=== PATIENT | male | born 1965 | race Caucasian/White ===

== ENCOUNTER 2018-06-22 12:45 | Outpatient (CLI) | payer BC ==
--- NOTE | 2018-06-22 14:42 | MRI ---
LUMBAR SPINE MRI WITHOUT IV CONTRAST: History: 52-year-old male with history of M54.10 acute lumbar radiculopathy, low back pain. Comparison: 12-31-15 FINDINGS: Generalized disc desiccation changes with ligament and facet hypertrophic changes. Conus medullaris r egion is unremarkable, terminating at L1. T12-L1: Unremarkable. L1-2: There is some disc bulging and ligament and facet hypertrophic changes with mild central canal and lateral recess stenosis without significant foraminal stenosis. L2-3: Generalized disc bulging with ligament and facet hypertrophic changes with moderate central can al and lateral recess stenosis and foraminal stenosis with multiple annular fissures. L3-4: Mild central canal and moderate lateral recess stenosis and left annular fissure. L4-5: Severe desiccation change with mild central canal and mild to moderate lateral recess stenosis with a central annular fissure and mild to moderate bilateral foraminal stenosis, worse on the left s denis. L5-S1: Mild bilateral foraminal stenosis with small right posterior annular fissure. IMPRESSION: Variable severity multilevel canal and lateral recess, and foraminal stenosis with multilevel annular fissures. POS: [facility]
== END 2018-06-22 12:46 | disposition home or self-care (01) ==
LOC: BICMRI 12:45
PROVIDERS: ATTEND Anesthesiology Pain Medicine
DX: M54.16 Radiculopathy, lumbar region (principal); M48.061 Spinal stenosis, lumbar region without neurogenic claudication
CPT/HCPCS: 72148

== ENCOUNTER 2018-11-04 14:15 | Outpatient (CLI) | payer BC ==
--- NOTE | 2018-11-04 15:43 | MRI ---
MRI CERVICAL SPINE WITHOUT CONTRAST: 11/04/18 Multiplanar and multisequential imaging cervical spine obtained. INDICATIONS: Cervical radiculopathy at C5. FINDINGS: There are prominent degenerative changes at C5-6 and C6-7. Loss of disc space at both of these levels . Prominent anterior osteophytes. Anterior wedging at C5 and C7 vertebrae. Similar degenerative changes were present at these levels on a CT cervical spine from 08/18/11. Degen erative changes have progressed. At C2-3, no significant disc bulge or spondylosis. At C3-4, disc bulge and spondylosis is present effacing the anterior subarachnoid space. Disc osteoph yte complex is more prominent paracentrally to the right with abutment of the anterior cord on the ri ght and slight displacement of the exiting right C4 nerve root. Mild right foraminal encroachment. At C4-5, slight anterolisthesis. Mild spondylosis. No cord impingement. No significant foraminal sten osis. At C5-6, degenerative disc changes. Loss of disc space. Mild posterior spondylosis effaces the anteri or subarachnoid space. No significant cord impingement. No significant foraminal stenosis is apparent . At C6-7, mild disc bulge and spondylosis efface the anterior subarachnoid space. No significant cord impingement. Mild right foraminal encroachment due to facet and uncinated hypertrophy. At C7-T1, mild disc bulge. Anterior subarachnoid space is preserved. Uncinate hypertrophy on the left produces mild left foraminal encroachment. Cervical cord signal is normal. IMPRESSION: Degenerative changes are prominent at C5-6 and C6-7 as described above. A disc osteophyte complex pr ojects to the right at C3-4 as noted above. POS: [facility]
== END 2018-11-04 14:16 | disposition home or self-care (01) ==
LOC: TBSIIMAG 14:15
PROVIDERS: ATTEND Nurse Practitioner Family
DX: M47.22 Other spondylosis with radiculopathy, cervical region (principal); M25.78 Osteophyte, vertebrae
CPT/HCPCS: 72141

== ENCOUNTER 2019-05-04 07:36 | Outpatient (CLI) | payer BC ==
--- NOTE | 2019-05-04 10:41 | MRI ---
MRI RIGHT KNEE PERFORMED WITHOUT CONTRAST ENHANCEMENT: Date: 05/04/19 HISTORY: Right knee pain, lateral pain. History of previous meniscectomy. COMPARISON: 09/03/14 study. FINDINGS: The anterior, as well as posterior cruciate ligaments are intact. On the previous examination, there was a posterior horn medial meniscus tear present. There are post meniscectomy changes now seen. There is blunting to the free edge of the posterior horn with these ch anges extending to body of the medial meniscus. There is internal signal change within posterior horn , somewhat more prominent than it was on previous exam, compatible with some internal mucoid degenera tion. Signal change does contact the undersurface of the posterior horn close to the posterior horn/b srikanth junction. This appears to represent a small undersurface tear, which is probably not related to t he meniscectomy change. On the lateral side, there has been development of a new tear, which involves the body of the lateral meniscus as more of a flap-type orientation of a tear. Posterior horn appears intact. Medial and lateral collateral ligaments, and iliotibial band regions appear unremarkable. The patellar articular cartilage is intact. The medial and lateral patellar retinaculum, and quadrice ps and patellar tendons are normal. IMPRESSION: 1. New tear involving the body of the lateral meniscus, more of a flap-type tear. 2. Post meniscectomy changes of the medial meniscus. Some more prominent increased signal change wit hin the posterior horn is probably related to some internal mucoid degeneration. There is an area in the posterior horn where there is signal change contacting the inferior articular surface in addition to the truncated appearance to the meniscus. This could indicate there is a small undersurface tear present in addition to the meniscectomy change. POS: [facility]
== END 2019-05-04 07:37 | disposition home or self-care (01) ==
LOC: BICMRI 07:36
PROVIDERS: ATTEND Orthopaedic Surgery
DX: S83.281A Other tear of lateral meniscus, current injury, right knee, initial encounter (principal); Z98.890 Other specified postprocedural states

== ENCOUNTER 2019-05-30 07:03 | Outpatient (CLI) | payer BC ==
[2019-05-30 15:03] LABS: #Basophils 0.1 thou/uL (0.0-0.2); #Eosinphils 0.3 thou/uL (0.0-0.7); #Lymphocytes 2.2 thou/uL (1.20-3.40); #Monocytes 0.4 thou/uL (0.11-0.59); #Neutrophils 3.8 thou/uL (1.40-6.50); %Basophils 0.9 % (0.0-1.0); %Eosinophils 4.5 % (0.0-10.0); %Lymphocytes 32.4 % (21.0-51.0); %Neutrophils 56.3 % (42.0-75.0); Hemoglobin 14.6 g/dL (14.0-18.0); Mean Corpuscular HGB CONC 33.5 g/dL (32.0-36.0); Mean Corpuscular Hemoglobin 31.2 pg (27.0-31.0); Mean Corpuscular Volume 93.1 fL (78.0-98.0); Mean Platelet Volume 6.5 fL (7.4-10.4); Platelet Count 233 thou/uL (130-400); RBC Distribution Width 12.1 % (11.5-14.5); Red Blood Cell (RBC) Count 4.68 mill/uL (4.70-6.10); White Blood Cell (WBC) Count 6.7 thou/uL (4.8-10.8)
[2019-05-30 15:23] LABS: Anion Gap 11 mmol/L (10-20); BUN (Urea Nitrogen) 11 mg/dL (8.4-25.7); Calc. Creatinine Clearance 0 mL/min (70-130); Calcium 9.4 mg/dL (7.8-10.44); Carbon Dioxide 31 mmol/L (22-29); Chloride 102 mmol/L (98-107); Estimated GFR-MDRD 79; Glucose 89 mg/dL (70-105); Potassium 4.5 mmol/L (3.5-5.1); Sodium 139 mmol/L (136-145)
--- NOTE | 2019-06-01 21:25 | EKG ---
Test Reason : Blood Pressure : / mmHG Vent. Rate : 063 BPM Atrial Rate : 063 BPM P-R Int : 190 ms QRS Dur : 092 ms QT Int : 396 ms P-R-T Axes : 025 032 036 degrees QTc Int : 405 ms Normal sinus rhythm Normal ECG When compared with ECG of 10-DEC-2014 17:21, No significant change was found Confirmed by Neema GUILLEN ([id number]) on 06/01/2019 9:24:46 PM Referred By: LOGAN Confirmed By:Neema GUILLEN
== END 2019-05-30 07:04 | disposition home or self-care (01) ==
LOC: LABBT 07:03
PROVIDERS: ATTEND Orthopaedic Surgery
DX: Z01.818 Encounter for other preprocedural examination (principal); S83.281A Other tear of lateral meniscus, current injury, right knee, initial encounter
CPT/HCPCS: 80048; 85025; 93005; 93010

== ENCOUNTER 2019-06-02 10:42 | Day surgery (SDC) | payer BC ==
[2019-05-30 13:50] VITALS: BMI 40.4
[2019-06-02] MEDS ORDERED: Lidocaine 1% PF 5 ML VIAL ONE (11:05)
[2019-06-02] MEDS ORDERED: Lidocaine 2% w/Epinephrine 1:200K 20 ML VIAL ONE (11:05)
[2019-06-02] MEDS ORDERED: PROPOFOL 200 MG/20 ML VIAL ONE (11:05)
[2019-06-02] MEDS ORDERED: Dexamethasone 20 MG/5 ML VIAL ONE (11:05)
[2019-06-02] MEDS ORDERED: Bupivacaine HCl 0.5%/Epinephrine 1:200,000/PF 30 ml Vial ONE (11:05)
[2019-06-02] MEDS ORDERED: Ketorolac Tromethamine 30 MG/ML VIAL ONE (11:05)
[2019-06-02] MEDS ORDERED: PROPOFOL 20 ML ONE (12:10)
[2019-06-02] MEDS ORDERED: Fentanyl 100 MCG/2 ML VIAL ONE ×4 (12:55→15:03)
[2019-06-02] MEDS ORDERED: HYDROcodone/Acetaminophen 5/325 mg Tablet ONE (15:23)
--- NOTE | 2019-06-02 21:34 | OP ---
DATE OF PROCEDURE: 06/02/2019 PROCEDURE PERFORMED: Right knee partial medial and lateral meniscectomy. PREOPERATIVE DIAGNOSIS: Lateral meniscus tear, medial meniscus tear. POSTOPERATIVE DIAGNOSIS: Lateral meniscus tear, medial meniscus tear. ANESTHESIA: General. BLOOD LOSS: Minimal. SPECIMEN: None. DRAINS: None. COMPLICATIONS: None. DESCRIPTION OF PROCEDURE: The patient was taken to the operating the room and general anesthesia induced. Right leg was prepped and draped in sterile fashion. No tourniquet was used. Patellofemoral joint had some significant synovitis. No significant arthritis. The medial compartment had a complex tear of the medial meniscus. This was debrided using basket forceps and smoothed using a 4-0 full-radius resector. I probed the meniscus and confirmed it was stable. ACL was intact. Lateral compartment had a complex tear involving most lateral meniscus. This was debrided with basket forceps and smoothed using a 4-0 full-radius resector as well. I probed the lateral meniscus and found it to be stable. I tried to leave a little bit over the popliteus hiatus so as not to destroy the hoop strength of the meniscus. The knee was irrigated and drained. Sterile dressings applied. Job ID: [id number]
== END 2019-06-02 16:10 | disposition home or self-care (01) ==
LOC: SDC 10:42
PROVIDERS: ATTEND Orthopaedic Surgery
PROC: 0SBD4ZZ Excision of Left Knee Joint, Percutaneous Endoscopic Approach (ICD-10-PCS; principal; 2019-06-02)
DX: S83.271A Complex tear of lateral meniscus, current injury, right knee, initial encounter (principal); S83.231A Complex tear of medial meniscus, current injury, right knee, initial encounter; M65.9 Synovitis and tenosynovitis, unspecified; I10 Essential (primary) hypertension; Z79.899 Other long term (current) drug therapy; Z88.1 Allergy status to other antibiotic agents; Z88.8 Allergy status to other drugs, medicaments and biological substances
CPT/HCPCS: J0670; J0690; J1100; J1885; J2001; J2704; J3010

== ENCOUNTER 2020-10-24 15:33 | Outpatient (CLI) | payer BC | END 2020-10-24 15:34 | disposition home or self-care (01) | LOC: BICULT 15:33 | PROVIDERS: ATTEND Family Medicine | DX: N45.1 Epididymitis (principal); N50.3 Cyst of epididymis | CPT/HCPCS: 76870; 93976 ==